=== PATIENT | female | born 1985 | race Caucasian/White ===

== ENCOUNTER 2018-12-06 03:58 | Emergency (ER) | payer OTHER ==
[~2018-12-06] VITALS: Ht 154.9 cm; Wt 75.0 kg
[2018-12-06 04:04] VITALS: BP 114/80
== END 2018-12-06 05:55 | disposition left against medical advice (07) ==
LOC: ER 03:58
DX: R10.9 Unspecified abdominal pain (principal); Z53.21 Procedure and treatment not carried out due to patient leaving prior to being seen by health care provider